=== PATIENT | male | born 1960 | race Caucasian/White ===

== ENCOUNTER 2017-12-01 11:30 | Inpatient (IN) | payer OTHER ==
[2017-12-01] MEDS ORDERED: ZOLPIDEM 5 MG TAB PO (12:00)
[2017-12-01] MEDS ORDERED: HYDROCODONE/APAP (5/325) TAB PO (12:00)
[2017-12-01] MEDS ORDERED: ACETAMINOPHEN 325 MG TAB PO (12:00)
[2017-12-01] MEDS ORDERED: ONDANSETRON 4 MG INJ IV (12:00)
[2017-12-01] MEDS ORDERED: VANCOMYCIN IV PER PHARMACY XX (12:00)
[2017-12-01] MEDS: DOCUSATE SODIUM 100 MG CAP PO ×2 (13:00→20:55)
[2017-12-01] MEDS: LEVOFLOXACIN 500MG/D5W (PMX) 100 ML IVPB (13:14)
[2017-12-01] MEDS: VANCOMYCIN 2 GM in SOD CHLORIDE 0.9% 500 ML IVPB (16:18)
[2017-12-01] MEDS: FAMOTIDINE 20 MG TAB PO (20:55)
[2017-12-01 20:57] LABS: C-REACTIVE PROTEIN 1.2 mg/dl (0.0-0.9)
[2017-12-01 21:38] LABS: ERYTHROCYTE SEDIMENTATION RATE 25 mm/Hr (0-20)
[2017-12-02] MEDS: VANCOMYCIN 1.25 GM in SOD CHLORIDE 0.9% 250 ML IVPB ×2 (05:58→18:25)
[2017-12-02 06:42] LABS: ADD MAN DIFF? NO
[2017-12-02 06:46] LABS: WHITE BLOOD COUNT 3.4 10^3/ul (4.8-10.8)
[2017-12-02 06:46] LABS: BASOPHILS % 0.9 % (0.0-2.0); EOSINOPHILS # 0.3 10^3/ul (0.0-0.5); EOSINOPHILS % 7.4 % (0.0-7.0); HEMATOCRIT 42.4 % (42.0-52.0); HEMOGLOBIN 13.6 g/dl (14.0-18.0); LYMPHOCYTES # 1.3 10^3/ul (0.8-2.9); LYMPHOCYTES % 36.9 % (15.0-51.0); MEAN CORPUSCULAR HEMOGLOBIN 29.6 pg (29.0-33.0); MEAN CORPUSCULAR HGB CONC 32.1 g/dl (32.0-37.0); MEAN CORPUSCULAR VOLUME 92.4 fl (82.0-101.0); MEAN PLATELET VOLUME 10.2 fl (7.4-10.4); MONOCYTE # 0.4 10^3/ul (0.3-0.9); MONOCYTES % 10.6 % (0.0-11.0); NEUTROPHIL # 1.5 10^3/ul (1.6-7.5); NEUTROPHILS % 44.2 % (39.0-77.0); PLATELET COUNT 205 10^3/UL (140-415); RED BLOOD COUNT 4.59 10^6/ul (4.70-6.10); RED CELL DISTRIBUTION WIDTH 12.2 % (11.5-14.5)
[2017-12-02 07:05] LABS: ALANINE AMINOTRANSFERASE 10 IU/L (13-69); ALBUMIN 3.9 g/dl (3.3-4.9); ALBUMIN/GLOBULIN RATIO 1.14; ALKALINE PHOSPHATASE 56 IU/L (42-121); ANION GAP 12 (8-16); ASPARTATE AMINO TRANSFERASE 17 IU/L (15-46); BILIRUBIN,INDIRECT 0.4 mg/dl (0-1.1); BILIRUBIN,TOTAL 0.4 mg/dl (0.2-1.3); BLOOD UREA NITROGEN 11 mg/dl (7-20); CARBON DIOXIDE 29 mmol/L (21-31); CHLORIDE 107 mmol/L (97-110); CREATININE 0.76 mg/dl (0.61-1.24); GLUCOSE 97 mg/dl (70-220); POTASSIUM 4.3 mmol/L (3.5-5.1); SODIUM 144 mmol/L (135-144); TOTAL PROTEIN 7.3 g/dl (6.1-8.1)
[2017-12-02] MEDS: DOCUSATE SODIUM 100 MG CAP PO ×2 (08:57→20:08)
[2017-12-02] MEDS: FAMOTIDINE 20 MG TAB PO (08:57)
[2017-12-02] MEDS: LEVOFLOXACIN 500MG/D5W (PMX) 100 ML IVPB (13:40)
[2017-12-02] MEDS: ENOXAPARIN 40 MG/0.4 ML SYG SC (13:43)
[2017-12-02] MEDS: LACTOBACILLUS RHAMNOSUS CAP PO (20:08)
[2017-12-03 06:01] LABS: ADD MAN DIFF? NO
[2017-12-03 06:03] LABS: BASOPHILS % 1.2 % (0.0-2.0); EOSINOPHILS # 0.3 10^3/ul (0.0-0.5); EOSINOPHILS % 7.2 % (0.0-7.0); HEMATOCRIT 41.2 % (42.0-52.0); HEMOGLOBIN 13.2 g/dl (14.0-18.0); LYMPHOCYTES # 1.6 10^3/ul (0.8-2.9); LYMPHOCYTES % 46.8 % (15.0-51.0); MEAN CORPUSCULAR HEMOGLOBIN 29.4 pg (29.0-33.0); MEAN CORPUSCULAR VOLUME 91.8 fl (82.0-101.0); MEAN PLATELET VOLUME 10.1 fl (7.4-10.4); MONOCYTE # 0.3 10^3/ul (0.3-0.9); MONOCYTES % 9.2 % (0.0-11.0); NEUTROPHIL # 1.2 10^3/ul (1.6-7.5); NEUTROPHILS % 35.6 % (39.0-77.0); PLATELET COUNT 200 10^3/UL (140-415); RED BLOOD COUNT 4.49 10^6/ul (4.70-6.10); RED CELL DISTRIBUTION WIDTH 12.2 % (11.5-14.5)
[2017-12-03 06:03] LABS: WHITE BLOOD COUNT 3.5 10^3/ul (4.8-10.8)
[2017-12-03 06:21] LABS: INR 0.99; PROTIME 13.2 Sec (11.9-14.9)
[2017-12-03 06:26] LABS: ALANINE AMINOTRANSFERASE 15 IU/L (13-69); ALBUMIN 3.4 g/dl (3.3-4.9); ALKALINE PHOSPHATASE 50 IU/L (42-121); ANION GAP 13 (8-16); ASPARTATE AMINO TRANSFERASE 16 IU/L (15-46); BILIRUBIN,INDIRECT 0.5 mg/dl (0-1.1); BILIRUBIN,TOTAL 0.5 mg/dl (0.2-1.3); BLOOD UREA NITROGEN 13 mg/dl (7-20); CALCIUM 9.2 mg/dl (8.4-10.2); CARBON DIOXIDE 29 mmol/L (21-31); CHLORIDE 105 mmol/L (97-110); CREATININE 0.92 mg/dl (0.61-1.24); GLUCOSE 98 mg/dl (70-220); POTASSIUM 4.1 mmol/L (3.5-5.1); SODIUM 143 mmol/L (135-144); TOTAL PROTEIN 6.8 g/dl (6.1-8.1)
[2017-12-03 06:32] LABS: HEMOGLOBIN A1C 5.9 % (0-5.9)
[2017-12-03] MEDS: VANCOMYCIN 1.25 GM in SOD CHLORIDE 0.9% 250 ML IVPB ×2 (06:35→18:26)
[2017-12-03] MEDS: FAMOTIDINE 20 MG TAB PO (09:08)
[2017-12-03] MEDS: LACTOBACILLUS RHAMNOSUS CAP PO ×2 (09:08→20:44)
[2017-12-03] MEDS: DOCUSATE SODIUM 100 MG CAP PO ×2 (09:08→20:45)
[2017-12-03] MEDS: ENOXAPARIN 40 MG/0.4 ML SYG SC (09:49)
[2017-12-03] MEDS: LEVOFLOXACIN 500 MG TAB PO (12:20)
[2017-12-04 06:19] LABS: CREATININE 0.85 mg/dl (0.61-1.24)
[2017-12-04 06:19] LABS: BLOOD UREA NITROGEN 14 mg/dl (7-20)
[2017-12-04] MEDS: VANCOMYCIN 1.25 GM in SOD CHLORIDE 0.9% 250 ML IVPB ×2 (06:19→20:14)
[2017-12-04] MEDS: LEVOFLOXACIN 500 MG TAB PO (06:19)
[2017-12-04] MEDS: LACTOBACILLUS RHAMNOSUS CAP PO ×2 (09:51→20:17)
[2017-12-04] MEDS: DOCUSATE SODIUM 100 MG CAP PO ×2 (09:51→20:15)
[2017-12-04] MEDS: FAMOTIDINE 20 MG TAB PO (09:51)
[2017-12-04] MEDS: ENOXAPARIN 40 MG/0.4 ML SYG SC (09:53)
[2017-12-04] MEDS ORDERED: morphine 2 MG INJ IV (19:30)
[2017-12-05] MEDS: VANCOMYCIN 1.25 GM in SOD CHLORIDE 0.9% 250 ML IVPB ×2 (05:55→18:19)
[2017-12-05] MEDS: LEVOFLOXACIN 500 MG TAB PO (05:55)
[2017-12-05] MEDS ORDERED: ROCURONIUM 50 MG INJ (07:00)
[2017-12-05] MEDS ORDERED: NEOSTIGMINE 3 MG/3 ML SYRINGE (07:00)
[2017-12-05] MEDS ORDERED: PROPOFOL 200 MG INJ (07:00)
[2017-12-05] MEDS ORDERED: GLYCOPYRROLATE 0.4 MG INJ (07:00)
[2017-12-05] MEDS ORDERED: LIDOCAINE 2% (SDV) 5 ML INJ (07:00)
[2017-12-05] MEDS ORDERED: MINERAL OIL LIGHT 10 ML VIAL (07:04)
[2017-12-05] MEDS: LIDOCAINE 1% (MDV) 20 ML INJ (08:21)
[2017-12-05] MEDS: POLYMYXIN/BACITRACIN 1L IRRIG IRR (08:21)
[2017-12-05] MEDS ORDERED: POLYMYXIN/BACITRACIN 1L IRRIG (08:52)
[2017-12-05] MEDS ORDERED: LABETALOL HCL 20MG INJ IV (09:00)
[2017-12-05] MEDS ORDERED: hydrALAzine 20 MG INJ IV (09:00)
[2017-12-05] MEDS ORDERED: OXYCODONE/ACETAMINOPHEN (5/325) TAB PO ×2 (09:00)
[2017-12-05] MEDS ORDERED: EPHEDrine SULFATE 50 MG/5 ML SYG IV (09:00)
[2017-12-05] MEDS ORDERED: DIPHENHYDRAMINE 50 MG INJ IV (09:00)
[2017-12-05] MEDS ORDERED: MEPERIDINE 25 MG INJ IV (09:00)
[2017-12-05] MEDS ORDERED: KETOROLAC 30 MG INJ IV (09:00)
[2017-12-05] MEDS ORDERED: ONDANSETRON 4 MG INJ IV (09:00)
[2017-12-05] MEDS ORDERED: FENTAnyl 50 MCG/ML VIAL IV ×3 (09:00)
[2017-12-05] MEDS: LACTOBACILLUS RHAMNOSUS CAP PO ×2 (10:18→20:28)
[2017-12-05] MEDS: DOCUSATE SODIUM 100 MG CAP PO ×2 (10:18→20:28)
[2017-12-05] MEDS: FAMOTIDINE 20 MG TAB PO (10:18)
[2017-12-06] MEDS: LEVOFLOXACIN 500 MG TAB PO (05:45)
[2017-12-06] MEDS: VANCOMYCIN 1.25 GM in SOD CHLORIDE 0.9% 250 ML IVPB ×2 (05:45→18:30)
[2017-12-06 06:43] LABS: ADD MAN DIFF? NO
[2017-12-06 06:46] LABS: BASOPHILS % 0.6 % (0.0-2.0); EOSINOPHILS # 0.3 10^3/ul (0.0-0.5); EOSINOPHILS % 5.7 % (0.0-7.0); HEMATOCRIT 42.2 % (42.0-52.0); HEMOGLOBIN 13.7 g/dl (14.0-18.0); LYMPHOCYTES # 1.8 10^3/ul (0.8-2.9); MEAN CORPUSCULAR HGB CONC 32.5 g/dl (32.0-37.0); MEAN CORPUSCULAR VOLUME 92.3 fl (82.0-101.0); MEAN PLATELET VOLUME 10.2 fl (7.4-10.4); MONOCYTE # 0.4 10^3/ul (0.3-0.9); MONOCYTES % 7.8 % (0.0-11.0); NEUTROPHIL # 2.7 10^3/ul (1.6-7.5); NEUTROPHILS % 50.7 % (39.0-77.0); PLATELET COUNT 208 10^3/UL (140-415); RED BLOOD COUNT 4.57 10^6/ul (4.70-6.10); RED CELL DISTRIBUTION WIDTH 12.7 % (11.5-14.5)
[2017-12-06 06:46] LABS: WHITE BLOOD COUNT 5.3 10^3/ul (4.8-10.8)
[2017-12-06 07:18] LABS: ANION GAP 12 (8-16); BLOOD UREA NITROGEN 15 mg/dl (7-20); CALCIUM 8.9 mg/dl (8.4-10.2); CARBON DIOXIDE 26 mmol/L (21-31); CHLORIDE 110 mmol/L (97-110); CREATININE 0.71 mg/dl (0.61-1.24); GLUCOSE 98 mg/dl (70-220); MAGNESIUM 1.9 mg/dl (1.7-2.5); POTASSIUM 4.2 mmol/L (3.5-5.1); SODIUM 144 mmol/L (135-144)
[2017-12-06] MEDS: DOCUSATE SODIUM 100 MG CAP PO ×2 (08:38→20:48)
[2017-12-06] MEDS: FAMOTIDINE 20 MG TAB PO (08:38)
[2017-12-06] MEDS: LACTOBACILLUS RHAMNOSUS CAP PO ×2 (08:38→20:48)
[2017-12-06] MEDS: ENOXAPARIN 40 MG/0.4 ML SYG SC (13:11)
[2017-12-06 18:15] LABS: VANCOMYCIN,TROUGH 8.6 ug/ml (10.0-20.0)
[2017-12-06] MEDS ORDERED: morphine LIQ (10 MG/5 ML) CUP PO (19:00)
[2017-12-07 05:57] LABS: ADD MAN DIFF? NO
[2017-12-07 05:59] LABS: WHITE BLOOD COUNT 4.3 10^3/ul (4.8-10.8)
[2017-12-07 06:00] LABS: BASOPHILS % 0.9 % (0.0-2.0); EOSINOPHILS # 0.3 10^3/ul (0.0-0.5); EOSINOPHILS % 6.6 % (0.0-7.0); HEMATOCRIT 40.1 % (42.0-52.0); HEMOGLOBIN 13.1 g/dl (14.0-18.0); LYMPHOCYTES # 1.7 10^3/ul (0.8-2.9); LYMPHOCYTES % 38.8 % (15.0-51.0); MEAN CORPUSCULAR HEMOGLOBIN 29.9 pg (29.0-33.0); MEAN CORPUSCULAR HGB CONC 32.7 g/dl (32.0-37.0); MEAN CORPUSCULAR VOLUME 91.6 fl (82.0-101.0); MEAN PLATELET VOLUME 10.1 fl (7.4-10.4); MONOCYTE # 0.4 10^3/ul (0.3-0.9); MONOCYTES % 9.6 % (0.0-11.0); NEUTROPHIL # 1.9 10^3/ul (1.6-7.5); NEUTROPHILS % 43.9 % (39.0-77.0); PLATELET COUNT 191 10^3/UL (140-415); RED BLOOD COUNT 4.38 10^6/ul (4.70-6.10); RED CELL DISTRIBUTION WIDTH 12.5 % (11.5-14.5)
[2017-12-07] MEDS: LEVOFLOXACIN 500 MG TAB PO (06:18)
[2017-12-07] MEDS: VANCOMYCIN 1.75 GM in SOD CHLORIDE 0.9% 500 ML IVPB ×2 (06:18→19:21)
[2017-12-07 06:33] LABS: ANION GAP 12 (8-16); BLOOD UREA NITROGEN 13 mg/dl (7-20); CALCIUM 9.1 mg/dl (8.4-10.2); CARBON DIOXIDE 27 mmol/L (21-31); CHLORIDE 106 mmol/L (97-110); CREATININE 0.84 mg/dl (0.61-1.24); GLUCOSE 96 mg/dl (70-220); MAGNESIUM 1.9 mg/dl (1.7-2.5); PHOSPHORUS 4.3 mg/dl (2.5-4.9); POTASSIUM 3.9 mmol/L (3.5-5.1); SODIUM 141 mmol/L (135-144)
[2017-12-07] MEDS: LACTOBACILLUS RHAMNOSUS CAP PO ×2 (08:20→21:06)
[2017-12-07] MEDS: DOCUSATE SODIUM 100 MG CAP PO ×2 (08:20→21:00)
[2017-12-07] MEDS: FAMOTIDINE 20 MG TAB PO (08:20)
[2017-12-07] MEDS: ENOXAPARIN 40 MG/0.4 ML SYG SC (08:37)
[2017-12-07] MEDS ORDERED: LIDOCAINE 1% (MPF) 5 ML VIAL SC (12:00)
[2017-12-07 12:52] LABS: PROCALCITONIN <0.10 ng/mL (<0.10)
[2017-12-08 05:50] LABS: ADD MAN DIFF? NO
[2017-12-08 05:55] LABS: BASOPHIL # 0.1 10^3/ul (0.0-0.1); BASOPHILS % 1.4 % (0.0-2.0); EOSINOPHILS # 0.3 10^3/ul (0.0-0.5); EOSINOPHILS % 7.8 % (0.0-7.0); HEMOGLOBIN 12.9 g/dl (14.0-18.0); LYMPHOCYTES # 1.4 10^3/ul (0.8-2.9); MEAN CORPUSCULAR HEMOGLOBIN 29.7 pg (29.0-33.0); MEAN CORPUSCULAR HGB CONC 32.3 g/dl (32.0-37.0); MEAN PLATELET VOLUME 10.1 fl (7.4-10.4); MONOCYTE # 0.4 10^3/ul (0.3-0.9); MONOCYTES % 10.3 % (0.0-11.0); NEUTROPHIL # 1.5 10^3/ul (1.6-7.5); NEUTROPHILS % 42.2 % (39.0-77.0); PLATELET COUNT 190 10^3/UL (140-415); RED BLOOD COUNT 4.35 10^6/ul (4.70-6.10); RED CELL DISTRIBUTION WIDTH 12.5 % (11.5-14.5)
[2017-12-08 05:55] LABS: WHITE BLOOD COUNT 3.6 10^3/ul (4.8-10.8)
[2017-12-08] MEDS: CIPROFLOXACIN 500 MG TAB PO ×2 (06:42→18:28)
[2017-12-08] MEDS: VANCOMYCIN 1.75 GM in SOD CHLORIDE 0.9% 500 ML IVPB ×2 (06:42→17:56)
[2017-12-08 06:46] LABS: ANION GAP 11 (8-16); BLOOD UREA NITROGEN 15 mg/dl (7-20); CARBON DIOXIDE 27 mmol/L (21-31); CHLORIDE 106 mmol/L (97-110); CREATININE 0.74 mg/dl (0.61-1.24); GLUCOSE 97 mg/dl (70-220); MAGNESIUM 1.9 mg/dl (1.7-2.5); PHOSPHORUS 3.9 mg/dl (2.5-4.9); SODIUM 140 mmol/L (135-144)
[2017-12-08] MEDS: DOCUSATE SODIUM 100 MG CAP PO ×2 (08:51→20:27)
[2017-12-08] MEDS: LACTOBACILLUS RHAMNOSUS CAP PO ×2 (08:52→20:27)
[2017-12-08] MEDS: FAMOTIDINE 20 MG TAB PO (08:52)
[2017-12-08] MEDS: ENOXAPARIN 40 MG/0.4 ML SYG SC (08:53)
[2017-12-09 04:59] LABS: ADD MAN DIFF? NO
[2017-12-09 05:10] LABS: WHITE BLOOD COUNT 3.9 10^3/ul (4.8-10.8)
[2017-12-09 05:10] LABS: EOSINOPHILS # 0.3 10^3/ul (0.0-0.5); EOSINOPHILS % 8.2 % (0.0-7.0); HEMATOCRIT 41.1 % (42.0-52.0); HEMOGLOBIN 13.2 g/dl (14.0-18.0); LYMPHOCYTES # 1.3 10^3/ul (0.8-2.9); LYMPHOCYTES % 33.4 % (15.0-51.0); MEAN CORPUSCULAR HEMOGLOBIN 29.5 pg (29.0-33.0); MEAN CORPUSCULAR HGB CONC 32.1 g/dl (32.0-37.0); MEAN CORPUSCULAR VOLUME 91.9 fl (82.0-101.0); MONOCYTE # 0.4 10^3/ul (0.3-0.9); MONOCYTES % 8.9 % (0.0-11.0); NEUTROPHIL # 1.9 10^3/ul (1.6-7.5); NEUTROPHILS % 48.2 % (39.0-77.0); PLATELET COUNT 185 10^3/UL (140-415); RED BLOOD COUNT 4.47 10^6/ul (4.70-6.10); RED CELL DISTRIBUTION WIDTH 12.4 % (11.5-14.5)
[2017-12-09 05:57] LABS: ANION GAP 11 (8-16); BLOOD UREA NITROGEN 17 mg/dl (7-20); CALCIUM 9.1 mg/dl (8.4-10.2); CARBON DIOXIDE 28 mmol/L (21-31); CHLORIDE 105 mmol/L (97-110); CREATININE 0.79 mg/dl (0.61-1.24); GLUCOSE 96 mg/dl (70-220); MAGNESIUM 1.9 mg/dl (1.7-2.5); PHOSPHORUS 4.2 mg/dl (2.5-4.9); POTASSIUM 4.1 mmol/L (3.5-5.1); SODIUM 140 mmol/L (135-144)
[2017-12-09 06:04] LABS: VANCOMYCIN,TROUGH 16.1 ug/ml (10.0-20.0)
[2017-12-09] MEDS: CIPROFLOXACIN 500 MG TAB PO ×2 (06:12→17:24)
[2017-12-09] MEDS: VANCOMYCIN 1.75 GM in SOD CHLORIDE 0.9% 500 ML IVPB (06:13)
[2017-12-09] MEDS: DOCUSATE SODIUM 100 MG CAP PO (08:27)
[2017-12-09] MEDS: FAMOTIDINE 20 MG TAB PO (08:28)
[2017-12-09] MEDS: LACTOBACILLUS RHAMNOSUS CAP PO (08:28)
[2017-12-09] MEDS: ENOXAPARIN 40 MG/0.4 ML SYG SC (08:29)
[2017-12-09] MEDS: VANCOMYCIN 1.5 GM in SOD CHLORIDE 0.9% 250 ML IVPB (18:01)
== END 2017-12-09 20:25 | disposition home health service (06) | DRG 571 ==
LOC: 2NE 11:30
PROVIDERS: Family Medicine
PROC: 0JBN0ZZ Excision of Right Lower Leg Subcutaneous Tissue and Fascia, Open Approach (ICD-10-PCS; principal; 2017-12-05 07:45)
PROC: 0JBN0ZZ Excision of Right Lower Leg Subcutaneous Tissue and Fascia, Open Approach (ICD-10-PCS; 2017-12-05 07:45)
PROC: 0JBN0ZX Excision of Right Lower Leg Subcutaneous Tissue and Fascia, Open Approach, Diagnostic (ICD-10-PCS; 2017-12-05 07:45)
PROC: 02HV33Z Insertion of Infusion Device into Superior Vena Cava, Percutaneous Approach (ICD-10-PCS; 2017-12-05 07:45)
DX: L97.319 Non-pressure chronic ulcer of right ankle with unspecified severity (principal); L03.115 Cellulitis of right lower limb; L02.415 Cutaneous abscess of right lower limb; L97.519 Non-pressure chronic ulcer of other part of right foot with unspecified severity
CPT/HCPCS: 36569; 71045; 73030-RT; 73610-RT; 73718; 73721; 76937; 80048; 80053; 80202; 82565; 83036; 83735; 84100; 84145; 84443; 84520; 85025; 85610; 85651; 86140; 88304; 97161